=== PATIENT | female | born 1955 | race Caucasian/White ===

== ENCOUNTER 2017-05-11 12:44 | Inpatient (IN) | payer OTHER ==
[~2017-05-11] VITALS: Ht 154.9 cm; Wt 83.0 kg
[~2017-05-11 12:44] MED LIST: LISI2.5T47; METF-372
[2017-05-11] MEDS ORDERED: SODIUM CHLORIDE 0.9% 2,000 ML IV ONE (15:52)
[2017-05-11] MEDS ORDERED: HYDROmorphone HCL 2 MG/ML VL IV ONE (16:00)
[2017-05-11] MEDS ORDERED: ONDANSETRON HCL 4 MG/2 ML VIAL IV ONE (16:00)
[2017-05-11] MEDS ORDERED: SODIUM CHLORIDE 0.9% 1,000 ML IV SCH (16:17)
[2017-05-11] MEDS ORDERED: HYDROcodone-ACET 5/325MG TAB PO PRN (16:30)
[2017-05-11] MEDS ORDERED: PROMETHAZINE HCL 25 MG/ML 1ML IV PRN (16:30)
[2017-05-11] MEDS ORDERED: DEXTROSE (50%) 50ML SYRG IV PRN (16:30)
[2017-05-11] MEDS ORDERED: TEMAZEPAM 15 MG CAP PO PRN (16:30)
[2017-05-11] MEDS ORDERED: ACETAMINOPHEN 500 MG TAB PO PRN (16:30)
[2017-05-11] MEDS ORDERED: LORazepam 0.5 MG TAB PO PRN (16:30)
[2017-05-11 16:51] LABS: Basophils # (auto) 0.1 uL; Eosinophils # (auto) 0 uL; Eosinophils % (auto) 0.2 % (0.0-7.0); Hemoglobin 11.6 g/dL (12.2-16.2); Red Cell Distribution Width 19.6 % (11.8-14.3)
[2017-05-11 16:53] LABS: Basophils % (auto) 0.3 % (0.0-2.0); Hematocrit 32.9 % (36.0-46.0); Lymphocytes # (auto) 0.6 uL; Lymphocytes % (auto) 3.6 % (10.0-50.0); Mean Corpuscular Hemoglobin 33.8 pg (28.0-32.0); Mean Corpuscular Hgb Conc. 35.2 g/dL (32.0-36.0); Monocytes % (auto) 5.8 % (0.0-12.0); Neutrophils # (auto) 15.6 uL; Neutrophils % (auto) 90.1 % (37.0-80.0); Platelet Count (auto) 251 10^3/uL (140-450); Red Blood Cells 3.43 10^6/uL (4.0-5.20); White Blood Cell 17.4 10^3/uL (4.4-10.8)
[2017-05-11] MEDS: InsuLIN REG 1unit/0.01ml Soln (100units/ml) SC SCH ×2 (17:00→22:32)
[2017-05-11 17:03] LABS: Albumin 3.7 g/dL (3.4-5.0); BUN/Creatinine Ratio 16.7; Bilirubin, Total 1.9 mg/dL (0.2-1.0); Calcium 7.5 mg/dL (8.5-10.1); Total Protein 6.2 g/dL (6.4-8.2)
[2017-05-11 17:12] LABS: INR 1.07 (0.9-1.15); Prothrombin Time 11.7 sec (9.37-12.3)
[2017-05-11 17:13] LABS: Potassium 2.7 mmol/L (3.5-5.1)
[2017-05-11] MEDS ORDERED: SOD CHL 0.9%/ KCL 40MEQ 1,000 ML IV SCH (17:15)
[2017-05-11] MEDS ORDERED: POTASSIUM CHL 10% (20 MEQ/15ML) 15ml ORAL SOLN PO ONE (17:15)
[2017-05-11] MEDS: ACCU-CHEK COMFORT CURVE STRIP VI SCH ×2 (17:30→22:31)
[2017-05-11] MEDS: MORPHINE SULFATE 10 MG/ML INJ 1ML SDV IV PRN ×2 (17:46→21:48)
[2017-05-11] MEDS: SOD CHL 0.9%/ KCL 40MEQ 1,000 ML IV SCH (18:10)
[2017-05-11 21:30] VITALS: BP 127/71
[2017-05-12] MEDS ORDERED: LISI10TA6 PO (02:31)
[2017-05-12] MEDS ORDERED: OMEP20CA74 PO (02:31)
[2017-05-12] MEDS ORDERED: CLOP75TA28 PO (02:32)
[2017-05-12] MEDS ORDERED: LORA-622 PO (02:33)
[2017-05-12] MEDS ORDERED: AMLO5TAB2 PO (02:33)
[2017-05-12] MEDS ORDERED: ASPI81TA27 PO (02:34)
[2017-05-12] MEDS ORDERED: FLUT1SPR5 (02:34)
[2017-05-12] MEDS ORDERED: GLIP-115 PO (02:35)
[2017-05-12 05:00] VITALS: BP 151/74
[2017-05-12] MEDS: MORPHINE SULFATE 10 MG/ML INJ 1ML SDV IV PRN ×5 (05:02→23:37)
[2017-05-12] MEDS: SOD CHL 0.9%/ KCL 40MEQ 1,000 ML IV SCH ×3 (05:07→18:37)
[2017-05-12] MEDS: ACCU-CHEK COMFORT CURVE STRIP VI SCH ×4 (06:33→22:47)
[2017-05-12] MEDS: InsuLIN REG 1unit/0.01ml Soln (100units/ml) SC SCH ×4 (06:33→22:00)
[2017-05-12 09:00] VITALS: BP 134/68
[2017-05-12] MEDS ORDERED: cefTRIAXone 1GM/10ml IVPUSH 10 ML IV ONE (12:45)
[2017-05-12 13:00] VITALS: BP 128/62
[2017-05-12 13:24] LABS: Urine Bacteria NONE SEEN /hpf (None Seen); Urine Blood Negative /uL (Negative); Urine Mucus FEW (None Seen); Urine WBC 34 /hpf (0 - 5)
[2017-05-12 17:00] VITALS: BP 157/75
[2017-05-12 22:00] VITALS: BP 152/81
[2017-05-13] MEDS: SOD CHL 0.9%/ KCL 40MEQ 1,000 ML IV SCH ×2 (02:05→11:27)
[2017-05-13 05:34] VITALS: BP 141/70
[2017-05-13] MEDS: MORPHINE SULFATE 10 MG/ML INJ 1ML SDV IV PRN ×2 (05:47→09:50)
[2017-05-13] MEDS: ACCU-CHEK COMFORT CURVE STRIP VI SCH ×2 (06:16→13:36)
[2017-05-13] MEDS: InsuLIN REG 1unit/0.01ml Soln (100units/ml) SC SCH ×2 (06:21→11:30)
[2017-05-13 07:48] LABS: Basophils # (auto) 0.1 uL; Basophils % (auto) 0.7 % (0.0-2.0); Eosinophils # (auto) 0.2 uL; Eosinophils % (auto) 1.8 % (0.0-7.0); Hematocrit 27.6 % (36.0-46.0); Hemoglobin 9.9 g/dL (12.2-16.2); Lymphocytes # (auto) 1.2 uL; Lymphocytes % (auto) 13.1 % (10.0-50.0); Mean Corpuscular Volume 94.3 fL (80.0-100.0); Monocytes % (auto) 10.8 % (0.0-12.0); Neutrophils # (auto) 6.7 uL; Neutrophils % (auto) 73.6 % (37.0-80.0); Nucleated Red Blood Cells % 0.2 %; Platelet Count (auto) 202 10^3/uL (140-450); Red Blood Cells 2.93 10^6/uL (4.0-5.20); Red Cell Distribution Width 19.7 % (11.8-14.3); White Blood Cell 9.1 10^3/uL (4.4-10.8)
[2017-05-13 08:03] LABS: Albumin 3.3 g/dL (3.4-5.0); BUN/Creatinine Ratio 14.5; Bilirubin, Total 2.6 mg/dL (0.2-1.0); Calcium 7.9 mg/dL (8.5-10.1); Potassium 3.8 mmol/L (3.5-5.1); Total Protein 6.2 g/dL (6.4-8.2)
[2017-05-13 09:00] VITALS: BP 142/74
[2017-05-13] MEDS ORDERED: cefTRIAXone 1GM/10ml IVPUSH 10 ML IV SCH (09:00)
[2017-05-13 13:00] VITALS: BP 166/73
[2017-05-13 14:33] VITALS: BP 142/71
== END 2017-05-13 16:30 | disposition home or self-care (01) | DRG 563 ==
LOC: ER 12:44 → TELE 12:45 → TELE-WESTW 20:34
PROVIDERS: ADMIT Internal Medicine; ATTEND Family Medicine
DX: S42.252A Displaced fracture of greater tuberosity of left humerus, initial encounter for closed fracture (principal); D58.9 Hereditary hemolytic anemia, unspecified; N39.0 Urinary tract infection, site not specified; S42.202A Unspecified fracture of upper end of left humerus, initial encounter for closed fracture; W19.XXXA Unspecified fall, initial encounter; E11.9 Type 2 diabetes mellitus without complications; E87.6 Hypokalemia; E66.9 Obesity, unspecified; M65.20 Calcific tendinitis, unspecified site; I10 Essential (primary) hypertension; F12.90 Cannabis use, unspecified, uncomplicated; Z90.710 Acquired absence of both cervix and uterus; Z86.73 Personal history of transient ischemic attack (TIA), and cerebral infarction without residual deficits; Z80.7 Family history of other malignant neoplasms of lymphoid, hematopoietic and related tissues; Z82.49 Family history of ischemic heart disease and other diseases of the circulatory system; Z72.0 Tobacco use; Z88.8 Allergy status to other drugs, medicaments and biological substances; Z68.34 Body mass index [BMI] 34.0-34.9, adult; Y93.89 Activity, other specified; Y92.89 Other specified places as the place of occurrence of the external cause; Y99.8 Other external cause status
CPT/HCPCS: 36415; 71046; 71101; 73030; 80053; 81001; 82550; 82962; 83036; 85025; 85610; 85730; 87040; 87086; 87400; 93005; 96361; 96374; 96375; J1815; J2405

== ENCOUNTER 2021-05-02 17:33 | Emergency (ER) | payer OTHER, MEDICARE ==
[~2021-05-02] VITALS: Ht 157.5 cm; Wt 86.2 kg
[~2021-05-02 17:33] MED LIST changes: +AMLO-489 PO; +ASPI-543 PO; +CLOP75TA28 PO; +FLUT1SPR5; +GLIP5TAB12 PO; +LISI-716 PO; -LISI2.5T47; +LORA-622 PO; -METF-372; +OMEP20CA74 PO
[2021-05-02] MEDS ORDERED: LOSARTAN POTASSIUM 50 MG TAB PO ONE (18:15)
[2021-05-02 19:02] LABS: Urine Bacteria NONE SEEN /hpf (None Seen); Urine Blood 3+ /uL (Negative); Urine Specific Gravity 1.026 (1.001-1.035); Urine WBC 1 /hpf (0 - 5)
[2021-05-03 01:45] VITALS: BP 157/78
== END 2021-05-03 01:02 | disposition home or self-care (01) ==
LOC: ER 17:33
DX: N39.0 Urinary tract infection, site not specified (principal); I10 Essential (primary) hypertension; R91.1 Solitary pulmonary nodule; E11.9 Type 2 diabetes mellitus without complications; K21.9 Gastro-esophageal reflux disease without esophagitis; Z86.2 Personal history of diseases of the blood and blood-forming organs and certain disorders involving the immune mechanism; Z90.49 Acquired absence of other specified parts of digestive tract; Z90.710 Acquired absence of both cervix and uterus; Z79.82 Long term (current) use of aspirin; Z79.01 Long term (current) use of anticoagulants; Z79.899 Other long term (current) drug therapy; Z88.8 Allergy status to other drugs, medicaments and biological substances
CPT/HCPCS: 74176; 81001; 93005